=== PATIENT | male | born 1930 | race Caucasian/White ===

== ENCOUNTER → 2017-07-01 | Outpatient (CLI) | payer MEDICARE, OTHER ==
[~2017-07-01] MED LIST: ASPIR LOW81 MG PO; B-121000 MCG PO; BISOPROLOL FUMAR5 MG PO; COUMADIN5 M2 PO; DULCOLAX5 MG PO; FLOMAX0.4 MG PO; FOLIC ACID1 MG PO; FOSAMAX70 MG PO; K-LOR20 MEQ PO; LASIX40 MG PO; METHOTREXATE2.5 MG PO; MIRALAX POWDER255 G1 PO; MULTIVITAMIN1 CTB PO; NAPROXEN500 M1 PO; NATURE'S BLEND F1 MG PO; PERCOCET 325 MG1 TA2 PO; PERCOCET 325 MG1 TA3 PO; POTASSIUM20 MEQ PO; VITAMIN D2000 IU PO; ZOFRAN ODT4 MG SL; [UNRECOGNIZED DRUG - OTHER] PO
[2017-07-01 15:34] LABS: INTERNATIONAL NORM RATIO 2.1 (2.0-3.5)
== END | disposition home or self-care (01) ==
LOC: LAB 13:15
PROVIDERS: Internal Medicine Critical Care Medicine
DX: Z79.01 Long term (current) use of anticoagulants (principal)

== ENCOUNTER 2017-07-07 20:17 | Inpatient (IN) | payer MEDICARE, OTHER ==
[2017-07-07] VITALS (7 sets, daily range): BP systolic 112–136; BP diastolic 60–76
[~2017-07-07] VITALS: Ht 177.8 cm; Wt 97.1 kg
[2017-07-07 21:26] LABS: BASO % 0.2 % (0.0-1.0); EOS % 0.1 % (1.0-4.0); HEMATOCRIT 47.8 % (42.0-52.0); HEMOGLOBIN 16.7 g/dl (14.0-18.0); LYMPH # 0.9 10*3/uL (1.3-4.4); LYMPH % 4.6 % (27.0-41.0); MEAN CELL VOLUME 96.2 fl (80.0-94.0); MEAN CORPUSCULAR HGB 33.6 pg (27.0-31.0); MEAN CORPUSCULAR HGB CONC 34.9 g/dl (33.0-37.0); MEAN PLATELET VOLUME 9.3 fl (9.6-12.3); MONO % 5.1 % (3.0-9.0); NEUT % 89.4 % (47.0-73.0); PLATELET COUNT AUTOMATED 220 10*3/uL (130-400); RED BLOOD COUNT 4.97 10*6/uL (4.50-5.90); RED CELL DISTRI WIDTH 13.2 % (0-14.5); WHITE BLOOD COUNT 19.1 10*3/uL (4.8-10.8)
[2017-07-07 21:37] LABS: ACT PARTIAL THROMBO TIME 35.5 SECONDS (20.8-31.5); INTERNATIONAL NORM RATIO 2.9 (2.0-3.5)
[2017-07-07 21:41] LABS: ALBUMIN 3.2 gm/dl (3.1-4.5); ALKALINE PHOSPHATASE 66 U/L (45-117); BUN 10 mg/dl (7-24); CHLORIDE 102 mmol/L (98-107); CREATININE 1.09 mg/dL (0.70-1.30); LIPASE 77 U/L (73-393); MAGNESIUM 2.1 mg/dL (1.5-2.1); POTASSIUM 3.8 mmol/L (3.5-5.1); SGOT/AST 18 IU/L (3-35); SGPT/ALT 28 U/L (12-78); SODIUM 135 mmol/L (136-145)
[2017-07-07 21:44] LABS: BILIRUBIN 1+ (NEGATIVE); BLOOD 2+ (NEGATIVE); CLARITY CLOUDY (CLEAR); COLOR YELLOW (YELLOW); GLUCOSE NEGATIVE (NEGATIVE); KETONE NEGATIVE (NEGATIVE); LEUKO ESTERASE 1+ (NEGATIVE); NITRITE NEGATIVE (NEGATIVE); PH 7.5 (5.0-9.0)
[2017-07-07 21:55] LABS: BACTERIA 3+; RBC 31-40 rbc/hpf (0-2); WBC 21-30 wbc/hpf (0-5)
[2017-07-08] VITALS (7 sets, daily range): BP systolic 100–127; BP diastolic 62–71
[2017-07-08] MEDS ORDERED: AMIODARONE HCL200 MG PO (02:05)
[2017-07-08] MEDS ORDERED: FLOVENT DISKU100 MCG INH (02:06)
[2017-07-08] MEDS ORDERED: FLOVENT HFA12 GM INH (02:07)
[2017-07-08 06:11] LABS: BASO % 0.1 % (0.0-1.0); EOS % 0.1 % (1.0-4.0); HEMATOCRIT 45.2 % (42.0-52.0); HEMOGLOBIN 15.6 g/dl (14.0-18.0); LYMPH # 1.2 10*3/uL (1.3-4.4); LYMPH % 6.6 % (27.0-41.0); MEAN CELL VOLUME 98.3 fl (80.0-94.0); MEAN CORPUSCULAR HGB 33.9 pg (27.0-31.0); MEAN CORPUSCULAR HGB CONC 34.5 g/dl (33.0-37.0); MEAN PLATELET VOLUME 9.4 fl (9.6-12.3); MONO % 5.5 % (3.0-9.0); NEUT # 15.9 10*3/uL (2.3-7.9); NEUT % 87.1 % (47.0-73.0); PLATELET COUNT AUTOMATED 186 10*3/uL (130-400); RED CELL DISTRI WIDTH 13.3 % (0-14.5); WHITE BLOOD COUNT 18.3 10*3/uL (4.8-10.8)
[2017-07-08 06:43] LABS: ALBUMIN 2.8 gm/dl (3.1-4.5); ALKALINE PHOSPHATASE 56 U/L (45-117); BUN 9 mg/dl (7-24); CHLORIDE 106 mmol/L (98-107); CHOLESTEROL 163 mg/dL (<200); CREATININE 1.06 mg/dL (0.70-1.30); FREE T4 1.56 ng/dl (0.76-1.46); HDL CHOLESTEROL 55 mg/dl (40-60); LDL CHOLESTEROL 92 mg/dL (9-159); PHOSPHOROUS 2.2 mg/dL (2.5-4.9); POTASSIUM 3.9 mmol/L (3.5-5.1); SGOT/AST 19 IU/L (3-35); SGPT/ALT 22 U/L (12-78); SODIUM 139 mmol/L (136-145); TRIGLYCERIDES 82 mg/dl (<150); VLDL CHOLESTEROL 16 mg/dL (6-40)
[2017-07-08 06:48] LABS: THYROID STIM HORMONE (HS) 0.483 uIU/ml (0.358-4.75)
[2017-07-08 06:56] LABS: INTERNATIONAL NORM RATIO 2.6 (2.0-3.5)
[2017-07-08 07:15] LABS: VITAMIN D, 25-HYDROXY 29.8 ng/mL (30-100)
[2017-07-09] VITALS: BP 120/68
[2017-07-09 05:31] LABS: BUN 9 mg/dl (7-24); CHLORIDE 108 mmol/L (98-107); CREATININE 0.94 mg/dL (0.70-1.30); POTASSIUM 3.4 mmol/L (3.5-5.1); SODIUM 139 mmol/L (136-145)
[2017-07-09 06:02] LABS: BASO % 0.2 % (0.0-1.0); EOS # 0.1 10*3/uL (0.0-0.4); EOS % 0.5 % (1.0-4.0); HEMATOCRIT 40.4 % (42.0-52.0); HEMOGLOBIN 14.1 g/dl (14.0-18.0); LYMPH # 1.1 10*3/uL (1.3-4.4); LYMPH % 8.2 % (27.0-41.0); MEAN CELL VOLUME 98.1 fl (80.0-94.0); MEAN CORPUSCULAR HGB 34.2 pg (27.0-31.0); MEAN CORPUSCULAR HGB CONC 34.9 g/dl (33.0-37.0); MEAN PLATELET VOLUME 10.2 fl (9.6-12.3); MONO # 0.8 10*3/uL (0.1-1.0); MONO % 6.1 % (3.0-9.0); NEUT # 11.3 10*3/uL (2.3-7.9); NEUT % 84.3 % (47.0-73.0); PLATELET COUNT AUTOMATED 159 10*3/uL (130-400); RED BLOOD COUNT 4.12 10*6/uL (4.50-5.90); RED CELL DISTRI WIDTH 13.1 % (0-14.5); WHITE BLOOD COUNT 13.4 10*3/uL (4.8-10.8)
[2017-07-09 08:00] VITALS: BP 126/73
[2017-07-09 12:00] VITALS: BP 101/66
[2017-07-09 16:00] VITALS: BP 121/63
[2017-07-09 20:00] VITALS: BP 113/60
[2017-07-10] VITALS: BP 129/71
[2017-07-10 05:55] LABS: ALBUMIN 2.1 gm/dl (3.1-4.5); ALKALINE PHOSPHATASE 47 U/L (45-117); BUN 9 mg/dl (7-24); CHLORIDE 107 mmol/L (98-107); CREATININE 0.91 mg/dL (0.70-1.30); IRON 26 ug/dL (65-175); MAGNESIUM 1.8 mg/dL (1.5-2.1); PHOSPHOROUS 1.2 mg/dL (2.5-4.9); POTASSIUM 3.4 mmol/L (3.5-5.1); SGOT/AST 21 IU/L (3-35); SGPT/ALT 20 U/L (12-78); SODIUM 137 mmol/L (136-145); TOTAL IRON BINDING CAPACITY 170 ug/dl (250-450); TOTAL PROTEIN 5.1 gm/dL (6.4-8.2)
[2017-07-10 06:08] LABS: BASO % 0.6 % (0.0-1.0); EOS # 0.1 10*3/uL (0.0-0.4); EOS % 1.2 % (1.0-4.0); HEMATOCRIT 38.8 % (42.0-52.0); HEMOGLOBIN 13.8 g/dl (14.0-18.0); LYMPH # 0.7 10*3/uL (1.3-4.4); LYMPH % 10.7 % (27.0-41.0); MEAN CELL VOLUME 98.7 fl (80.0-94.0); MEAN CORPUSCULAR HGB 35.1 pg (27.0-31.0); MEAN CORPUSCULAR HGB CONC 35.6 g/dl (33.0-37.0); MONO # 0.4 10*3/uL (0.1-1.0); MONO % 5.1 % (3.0-9.0); NEUT # 5.5 10*3/uL (2.3-7.9); NEUT % 80.9 % (47.0-73.0); PLATELET COUNT AUTOMATED 159 10*3/uL (130-400); RED BLOOD COUNT 3.93 10*6/uL (4.50-5.90); RED CELL DISTRI WIDTH 13.2 % (0-14.5); WHITE BLOOD COUNT 6.8 10*3/uL (4.8-10.8)
[2017-07-10 06:18] LABS: FERRITIN 393.9 ng/mL (22.0-322.0)
[2017-07-10 08:00] VITALS: BP 113/62
[2017-07-10 10:26] LABS: INTERNATIONAL NORM RATIO 2.1 (2.0-3.5)
[2017-07-10 12:00] VITALS: BP 118/72
[2017-07-10 16:00] VITALS: BP 128/76
[2017-07-10 20:00] VITALS: BP 143/74
[2017-07-11] VITALS: BP 135/79
[2017-07-11 04:00] VITALS: BP 110/62
[2017-07-11 06:00] VITALS: BP 114/66
[2017-07-11 06:56] LABS: INTERNATIONAL NORM RATIO 2.5 (2.0-3.5)
[2017-07-11 08:00] VITALS: BP 124/85
[2017-07-11] MEDS ORDERED: FEROSUL325 MG PO (09:24)
[2017-07-11] MEDS ORDERED: KLOR-CON M2020 ME1 PO (09:24)
[2017-07-11] MEDS ORDERED: CIPRO500 MG PO (09:24)
[2017-07-11] MEDS ORDERED: ARNUITY ELLIP200 MCG INH (09:28)
[2017-07-11 12:00] VITALS: BP 107/66
== END 2017-07-11 13:00 | disposition other institution (70) | DRG 872 ==
LOC: ED 20:17 → EDHOLD 07-08 01:01 → 4E 07-08 01:01
PROVIDERS: Emergency Medicine Emergency Medical Services; Family Medicine Adult Medicine; Hospitalist; Internal Medicine; Registered Nurse; ADMIT Internal Medicine
DX: A41.9 Sepsis, unspecified organism (principal); E44.0 Moderate protein-calorie malnutrition; I48.0 Paroxysmal atrial fibrillation; E83.51 Hypocalcemia; N39.0 Urinary tract infection, site not specified; L40.50 Arthropathic psoriasis, unspecified; E53.8 Deficiency of other specified B group vitamins; E87.6 Hypokalemia; Y99.8 Other external cause status; Z51.5 Encounter for palliative care; Z66 Do not resuscitate; E66.9 Obesity, unspecified; K52.9 Noninfective gastroenteritis and colitis, unspecified; K21.9 Gastro-esophageal reflux disease without esophagitis; N40.1 Benign prostatic hyperplasia with lower urinary tract symptoms; K80.20 Calculus of gallbladder without cholecystitis without obstruction; K40.90 Unilateral inguinal hernia, without obstruction or gangrene, not specified as recurrent; Z96.653 Presence of artificial knee joint, bilateral; W18.30XA Fall on same level, unspecified, initial encounter; B96.4 Proteus (mirabilis) (morganii) as the cause of diseases classified elsewhere; Z98.41 Cataract extraction status, right eye; Z98.42 Cataract extraction status, left eye; Z87.891 Personal history of nicotine dependence; Z88.6 Allergy status to analgesic agent; Z79.899 Other long term (current) drug therapy; Z79.01 Long term (current) use of anticoagulants; Z68.31 Body mass index [BMI] 31.0-31.9, adult; Y93.89 Activity, other specified; Y92.89 Other specified places as the place of occurrence of the external cause

== ENCOUNTER → 2017-08-03 | Outpatient (CLI) | payer MEDICARE, OTHER ==
[~2017-08-03] MED LIST changes: +AMIODARONE HCL200 MG PO; +ARNUITY ELLIP200 MCG INH; +CIPRO500 MG PO; +FEROSUL325 MG PO; +FLOVENT DISKU100 MCG INH; +FLOVENT HFA12 GM INH; +KLOR-CON M2020 ME1 PO
[2017-08-03 14:52] LABS: BASO # 0.1 10*3/uL (0.0-0.1); BASO % 0.9 % (0.0-1.0); EOS # 0.3 10*3/uL (0.0-0.4); EOS % 4.4 % (1.0-4.0); HEMATOCRIT 45.5 % (42.0-52.0); HEMOGLOBIN 15.5 g/dl (14.0-18.0); LYMPH # 1.6 10*3/uL (1.3-4.4); LYMPH % 23.8 % (27.0-41.0); MEAN CELL VOLUME 100.4 fl (80.0-94.0); MEAN CORPUSCULAR HGB 34.2 pg (27.0-31.0); MEAN CORPUSCULAR HGB CONC 34.1 g/dl (33.0-37.0); MEAN PLATELET VOLUME 9.4 fl (9.6-12.3); MONO # 0.6 10*3/uL (0.1-1.0); MONO % 8.8 % (3.0-9.0); NEUT # 4.2 10*3/uL (2.3-7.9); NEUT % 61.1 % (47.0-73.0); PLATELET COUNT AUTOMATED 219 10*3/uL (130-400); RED BLOOD COUNT 4.53 10*6/uL (4.50-5.90); RED CELL DISTRI WIDTH 13.2 % (0-14.5); WHITE BLOOD COUNT 6.8 10*3/uL (4.8-10.8)
[2017-08-03 15:06] LABS: ALBUMIN 3.1 gm/dl (3.1-4.5); ALKALINE PHOSPHATASE 63 U/L (45-117); BUN 11 mg/dl (7-24); CHLORIDE 106 mmol/L (98-107); CREATININE 1.03 mg/dL (0.70-1.30); POTASSIUM 4.1 mmol/L (3.5-5.1); SGOT/AST 15 IU/L (3-35); SGPT/ALT 20 U/L (12-78); SODIUM 137 mmol/L (136-145); TOTAL PROTEIN 6.4 gm/dL (6.4-8.2)
== END | disposition home or self-care (01) ==
LOC: CT 01:11 → LAB 01:11 → CT 14:00
PROVIDERS: Urology
DX: Z12.5 Encounter for screening for malignant neoplasm of prostate (principal); N39.0 Urinary tract infection, site not specified; K40.90 Unilateral inguinal hernia, without obstruction or gangrene, not specified as recurrent; N40.1 Benign prostatic hyperplasia with lower urinary tract symptoms

== ENCOUNTER 2018-03-13 20:51 | Inpatient (IN) | payer MEDICARE, OTHER ==
[~2018-03-13] VITALS: Ht 177.8 cm; Wt 95.3 kg
[2018-03-13 21:45] VITALS: BP 115/61
[2018-03-13 22:07] LABS: HEMATOCRIT 45.9 % (42.0-52.0); HEMOGLOBIN 16.1 g/dl (14.0-18.0); MEAN CELL VOLUME 97.9 fl (80.0-94.0); MEAN CORPUSCULAR HGB 34.3 pg (27.0-31.0); MEAN CORPUSCULAR HGB CONC 35.1 g/dl (33.0-37.0); MEAN PLATELET VOLUME 9.5 fl (9.6-12.3); PLATELET COUNT AUTOMATED 220 10*3/uL (130-400); RED BLOOD COUNT 4.69 10*6/uL (4.50-5.90); RED CELL DISTRI WIDTH 12.5 % (0-14.5); WHITE BLOOD COUNT 19.2 10*3/uL (4.8-10.8)
[2018-03-13 22:15] VITALS: BP 116/71
[2018-03-13] MEDS ORDERED: WARFARIN SOD5 MG PO (22:18)
[2018-03-13] MEDS ORDERED: BISOPROLOL FM5 MG PO (22:19)
[2018-03-13 22:20] LABS: ACT PARTIAL THROMBO TIME 31.8 SECONDS (20.8-31.5); INTERNATIONAL NORM RATIO 2.7 (2.0-3.5)
[2018-03-13] MEDS ORDERED: FINASTERIDE5 M1 PO (22:20)
[2018-03-13] MEDS ORDERED: FUROSEMIDE40 MG PO (22:20)
[2018-03-13] MEDS ORDERED: PROVENTIL HFA6.7 GM INH (22:21)
[2018-03-13] MEDS ORDERED: FLONASE ALLERG9.9 ML NAS (22:22)
[2018-03-13 22:27] LABS: ALBUMIN 2.8 gm/dl (3.1-4.5); ALKALINE PHOSPHATASE 74 U/L (45-117); BUN 12 mg/dl (7-24); CHLORIDE 101 mmol/L (98-107); CREATININE 1.18 mg/dL (0.70-1.30); LIPASE 67 U/L (73-393); POTASSIUM 3.8 mmol/L (3.5-5.1); SGOT/AST 23 IU/L (3-35); SGPT/ALT 24 U/L (12-78); SODIUM 134 mmol/L (136-145); TOTAL PROTEIN 6.6 gm/dL (6.4-8.2); TROPONIN I < 0.015 ng/ml (<0.045)
[2018-03-13 22:28] LABS: PLATELET SUFFICIENCY NORMAL (NORMAL); TOTAL CELLS COUNTED 100 #CELLS
[2018-03-13 23:30] VITALS: BP 109/61
[2018-03-13 23:48] LABS: BILIRUBIN NEGATIVE (NEGATIVE); BLOOD 1+ (NEGATIVE); CLARITY CLEAR (CLEAR); COLOR YELLOW (YELLOW); GLUCOSE NEGATIVE (NEGATIVE); KETONE 2+ (NEGATIVE); LEUKO ESTERASE NEGATIVE (NEGATIVE); NITRITE NEGATIVE (NEGATIVE); PH 6.5 (5.0-9.0); SPECIFIC GRAVITY 1.015 (1.005-1.030)
[2018-03-14 00:08] LABS: YEAST TRACE
[2018-03-14 00:10] VITALS: BP 126/70
[2018-03-14 06:20] LABS: BASO % 0.2 % (0.0-1.0); HEMATOCRIT 42.9 % (42.0-52.0); HEMOGLOBIN 14.8 g/dl (14.0-18.0); LYMPH # 0.7 10*3/uL (1.3-4.4); LYMPH % 4.1 % (27.0-41.0); MEAN CELL VOLUME 99.5 fl (80.0-94.0); MEAN CORPUSCULAR HGB 34.3 pg (27.0-31.0); MEAN CORPUSCULAR HGB CONC 34.5 g/dl (33.0-37.0); MEAN PLATELET VOLUME 9.7 fl (9.6-12.3); MONO # 0.9 10*3/uL (0.1-1.0); MONO % 5.4 % (3.0-9.0); NEUT # 15.2 10*3/uL (2.3-7.9); NEUT % 89.6 % (47.0-73.0); PLATELET COUNT AUTOMATED 202 10*3/uL (130-400); RED BLOOD COUNT 4.31 10*6/uL (4.50-5.90); RED CELL DISTRI WIDTH 12.6 % (0-14.5)
[2018-03-14 06:38] LABS: ALBUMIN 2.4 gm/dl (3.1-4.5); BUN 11 mg/dl (7-24); CHLORIDE 103 mmol/L (98-107); CHOLESTEROL 146 mg/dL (<200); CREATININE 1.05 mg/dL (0.70-1.30); HDL CHOLESTEROL 30 mg/dl (40-60); LDL CHOLESTEROL 94 mg/dL (9-159); PHOSPHOROUS 2.9 mg/dL (2.5-4.9); SGOT/AST 20 IU/L (3-35); SGPT/ALT 23 U/L (12-78); SODIUM 137 mmol/L (136-145); TOTAL PROTEIN 5.9 gm/dL (6.4-8.2); TRIGLYCERIDES 111 mg/dl (<150); VLDL CHOLESTEROL 22 mg/dL (6-40)
[2018-03-14 06:44] LABS: ALKALINE PHOSPHATASE 62 U/L (45-117)
[2018-03-14 06:53] LABS: ACT PARTIAL THROMBO TIME 33.5 SECONDS (20.8-31.5); INTERNATIONAL NORM RATIO 2.3 (2.0-3.5)
[2018-03-14 07:44] LABS: VITAMIN D, 25-HYDROXY 36.1 ng/mL (30-100)
[2018-03-14 08:00] VITALS: BP 116/68
[2018-03-14] MEDS ORDERED: FLOVENT DISKU100 MCG INH (10:53)
[2018-03-14 12:00] VITALS: BP 100/57; BP 133/62
[2018-03-14 16:00] VITALS: BP 106/62
[2018-03-14 20:00] VITALS: BP 110/67
[2018-03-15 00:50] VITALS: BP 132/58
[2018-03-15 08:00] VITALS: BP 131/83
[2018-03-15 08:02] LABS: BASO % 0.3 % (0.0-1.0); EOS % 0.3 % (1.0-4.0); HEMATOCRIT 44.2 % (42.0-52.0); HEMOGLOBIN 15.1 g/dl (14.0-18.0); LYMPH # 0.7 10*3/uL (1.3-4.4); LYMPH % 8.2 % (27.0-41.0); MEAN CELL VOLUME 99.3 fl (80.0-94.0); MEAN CORPUSCULAR HGB 33.9 pg (27.0-31.0); MEAN CORPUSCULAR HGB CONC 34.2 g/dl (33.0-37.0); MEAN PLATELET VOLUME 9.4 fl (9.6-12.3); MONO # 0.5 10*3/uL (0.1-1.0); MONO % 6.1 % (3.0-9.0); NEUT # 7.2 10*3/uL (2.3-7.9); NEUT % 84.1 % (47.0-73.0); PLATELET COUNT AUTOMATED 230 10*3/uL (130-400); RED BLOOD COUNT 4.45 10*6/uL (4.50-5.90); RED CELL DISTRI WIDTH 12.7 % (0-14.5); WHITE BLOOD COUNT 8.6 10*3/uL (4.8-10.8)
[2018-03-15 08:27] LABS: INTERNATIONAL NORM RATIO 2.1 (2.0-3.5)
[2018-03-15 08:28] LABS: CHLORIDE 108 mmol/L (98-107); POTASSIUM 4.2 mmol/L (3.5-5.1); SODIUM 139 mmol/L (136-145)
[2018-03-15 08:37] LABS: ALBUMIN 2.5 gm/dl (3.1-4.5); ALKALINE PHOSPHATASE 64 U/L (45-117); BUN 8 mg/dl (7-24); CREATININE 1.09 mg/dL (0.70-1.30); PHOSPHOROUS 2.4 mg/dL (2.5-4.9); SGOT/AST 36 IU/L (3-35); SGPT/ALT 26 U/L (12-78)
[2018-03-15 12:00] VITALS: BP 110/54
[2018-03-15 16:00] VITALS: BP 140/81
[2018-03-15 20:00] VITALS: BP 132/72
[2018-03-16] VITALS (9 sets, daily range): BP systolic 109–146; BP diastolic 50–86
[2018-03-16 06:43] LABS: BASO # 0.1 10*3/uL (0.0-0.1); BASO % 0.7 % (0.0-1.0); EOS # 0.3 10*3/uL (0.0-0.4); EOS % 4.1 % (1.0-4.0); HEMATOCRIT 42.8 % (42.0-52.0); HEMOGLOBIN 14.7 g/dl (14.0-18.0); LYMPH % 12.9 % (27.0-41.0); MEAN CELL VOLUME 98.4 fl (80.0-94.0); MEAN CORPUSCULAR HGB 33.8 pg (27.0-31.0); MEAN CORPUSCULAR HGB CONC 34.3 g/dl (33.0-37.0); MEAN PLATELET VOLUME 9.4 fl (9.6-12.3); MONO # 0.8 10*3/uL (0.1-1.0); MONO % 10.2 % (3.0-9.0); NEUT # 5.4 10*3/uL (2.3-7.9); NEUT % 70.8 % (47.0-73.0); PLATELET COUNT AUTOMATED 209 10*3/uL (130-400); RED BLOOD COUNT 4.35 10*6/uL (4.50-5.90); RED CELL DISTRI WIDTH 12.7 % (0-14.5); WHITE BLOOD COUNT 7.6 10*3/uL (4.8-10.8)
[2018-03-16 07:03] LABS: ALBUMIN 2.2 gm/dl (3.1-4.5); BUN 7 mg/dl (7-24); CHLORIDE 110 mmol/L (98-107); POTASSIUM 3.3 mmol/L (3.5-5.1); SODIUM 143 mmol/L (136-145)
[2018-03-16 07:06] LABS: ALKALINE PHOSPHATASE 53 U/L (45-117); SGOT/AST 35 IU/L (3-35); SGPT/ALT 34 U/L (12-78); TOTAL PROTEIN 5.4 gm/dL (6.4-8.2)
[2018-03-16 07:09] LABS: INTERNATIONAL NORM RATIO 1.6 (2.0-3.5)
[2018-03-17] VITALS: BP 136/67
[2018-03-17 06:32] LABS: BASO # 0.1 10*3/uL (0.0-0.1); EOS # 0.3 10*3/uL (0.0-0.4); EOS % 3.7 % (1.0-4.0); HEMATOCRIT 42.4 % (42.0-52.0); HEMOGLOBIN 14.6 g/dl (14.0-18.0); MEAN CELL VOLUME 98.4 fl (80.0-94.0); MEAN CORPUSCULAR HGB 33.9 pg (27.0-31.0); MEAN CORPUSCULAR HGB CONC 34.4 g/dl (33.0-37.0); MEAN PLATELET VOLUME 9.1 fl (9.6-12.3); MONO # 0.5 10*3/uL (0.1-1.0); MONO % 6.9 % (3.0-9.0); NEUT # 5.3 10*3/uL (2.3-7.9); PLATELET COUNT AUTOMATED 198 10*3/uL (130-400); RED BLOOD COUNT 4.31 10*6/uL (4.50-5.90); RED CELL DISTRI WIDTH 12.8 % (0-14.5); WHITE BLOOD COUNT 7.3 10*3/uL (4.8-10.8)
[2018-03-17 06:38] LABS: INTERNATIONAL NORM RATIO 1.5 (2.0-3.5)
[2018-03-17 06:49] LABS: ALBUMIN 2.2 gm/dl (3.1-4.5); BUN 7 mg/dl (7-24); CHLORIDE 111 mmol/L (98-107); POTASSIUM 3.5 mmol/L (3.5-5.1); SODIUM 141 mmol/L (136-145)
[2018-03-17 06:54] LABS: ALKALINE PHOSPHATASE 53 U/L (45-117); CREATININE 0.73 mg/dL (0.70-1.30); PHOSPHOROUS 2.2 mg/dL (2.5-4.9); SGOT/AST 39 IU/L (3-35); SGPT/ALT 38 U/L (12-78); TOTAL PROTEIN 5.3 gm/dL (6.4-8.2)
[2018-03-17 08:00] VITALS: BP 122/66
[2018-03-17 12:00] VITALS: BP 108/71
[2018-03-17 16:00] VITALS: BP 113/71
[2018-03-17 16:10] LABS: ALBUMIN, URINE RANDOM 40.8 % (.); ALPHA-1-GLOBULIN, URINE 6.7 % (.); ALPHA-2-GLOBULIN, URINE 14.8 % (.); M-SPIKE % Not Observed % (Not Observed); PROTEIN,TOTAL - URINE RANDOM 38.8 mg/dL (Not Estab.)
[2018-03-17 20:00] VITALS: BP 119/54
[2018-03-18 00:22] VITALS: BP 131/69
[2018-03-18 06:02] LABS: BASO # 0.1 10*3/uL (0.0-0.1); BASO % 0.8 % (0.0-1.0); EOS # 0.3 10*3/uL (0.0-0.4); EOS % 2.4 % (1.0-4.0); HEMATOCRIT 46.5 % (42.0-52.0); HEMOGLOBIN 16.6 g/dl (14.0-18.0); LYMPH # 0.9 10*3/uL (1.3-4.4); LYMPH % 8.6 % (27.0-41.0); MEAN CELL VOLUME 96.9 fl (80.0-94.0); MEAN CORPUSCULAR HGB 34.6 pg (27.0-31.0); MEAN CORPUSCULAR HGB CONC 35.7 g/dl (33.0-37.0); MEAN PLATELET VOLUME 9.4 fl (9.6-12.3); MONO # 0.7 10*3/uL (0.1-1.0); MONO % 6.4 % (3.0-9.0); NEUT # 8.5 10*3/uL (2.3-7.9); NEUT % 79.9 % (47.0-73.0); RED CELL DISTRI WIDTH 12.6 % (0-14.5); WHITE BLOOD COUNT 10.6 10*3/uL (4.8-10.8)
[2018-03-18 06:27] LABS: ALBUMIN 2.6 gm/dl (3.1-4.5); BUN 6 mg/dl (7-24); CHLORIDE 109 mmol/L (98-107); CREATININE 0.81 mg/dL (0.70-1.30); INTERNATIONAL NORM RATIO 1.5 (2.0-3.5); POTASSIUM 3.3 mmol/L (3.5-5.1); SGOT/AST 35 IU/L (3-35); SGPT/ALT 45 U/L (12-78); SODIUM 141 mmol/L (136-145); TOTAL PROTEIN 6.1 gm/dL (6.4-8.2)
[2018-03-18 06:28] LABS: ALKALINE PHOSPHATASE 67 U/L (45-117)
[2018-03-18 07:01] LABS: PLATELET COUNT AUTOMATED 283 10*3/uL (130-400)
[2018-03-18 08:00] VITALS: BP 122/86
[2018-03-18 12:00] VITALS: BP 106/60
[2018-03-18] MEDS ORDERED: DOK COLACE100 MG PO (12:53)
[2018-03-18] MEDS ORDERED: METRONIDAZOLE500 M1 PO (12:53)
[2018-03-18] MEDS ORDERED: AUGMENTIN 875875 MG PO (12:53)
[2018-03-18] MEDS ORDERED: HYDROCODONE-AC1 EAC1 PO (12:53)
[2018-03-21 15:05] LABS: ALBUMIN, URINE RANDOM 36.6 % (.); ALPHA-1-GLOBULIN, URINE 7.1 % (.); ALPHA-2-GLOBULIN, URINE 15.9 % (.); GAMMA GLOBULIN, URINE 15.3 % (.); M-SPIKE % Not Observed % (Not Observed); PROTEIN,TOTAL - URINE RANDOM 14.3 mg/dL (Not Estab.)
[2018-03-22 17:06] LABS: ALBUMIN 2.5 g/dL (2.9-4.4); ALPHA-1-GLOBULIN 0.3 g/dL (0.0-0.4); ALPHA-2-GLOBULIN 0.8 g/dL (0.4-1.0); BETA GLOBULIN 0.7 g/dL (0.7-1.3); GAMMA GLOBULIN 0.7 g/dL (0.4-1.8); GLOBULIN, TOTAL 2.6 g/dL (2.2-3.9); M-SPIKE 0.1 g/dL (Not Observed); TOTAL PROTEIN, SERUM 5.1 g/dL (6.0-8.5)
== END 2018-03-18 14:49 | disposition other institution (70) | DRG 853 ==
LOC: ED 20:51 → EDHOLD 23:13 → 4E 23:13
PROVIDERS: Emergency Medicine; Family Medicine; Internal Medicine; Internal Medicine Hematology & Oncology; Physician Assistant
PROC: 0D9P0ZZ Drainage of Rectum, Open Approach (ICD-10-PCS; principal; 2018-03-16)
DX: A41.9 Sepsis, unspecified organism (principal); J18.9 Pneumonia, unspecified organism; E43 Unspecified severe protein-calorie malnutrition; G93.41 Metabolic encephalopathy; E87.2 Acidosis; I48.0 Paroxysmal atrial fibrillation; D68.9 Coagulation defect, unspecified; I50.30 Unspecified diastolic (congestive) heart failure; E87.1 Hypo-osmolality and hyponatremia; K61.1 Rectal abscess; E86.0 Dehydration; B37.9 Candidiasis, unspecified; R31.29 Other microscopic hematuria; R65.20 Severe sepsis without septic shock; R32 Unspecified urinary incontinence; K52.9 Noninfective gastroenteritis and colitis, unspecified; R15.9 Full incontinence of feces; R94.31 Abnormal electrocardiogram [ECG] [EKG]; R74.0 Nonspecific elevation of levels of transaminase and lactic acid dehydrogenase [LDH]; R80.9 Proteinuria, unspecified; R82.4 Acetonuria; K21.9 Gastro-esophageal reflux disease without esophagitis; L40.50 Arthropathic psoriasis, unspecified; N40.0 Benign prostatic hyperplasia without lower urinary tract symptoms; E53.8 Deficiency of other specified B group vitamins; E55.9 Vitamin D deficiency, unspecified; K64.9 Unspecified hemorrhoids; I35.8 Other nonrheumatic aortic valve disorders; R73.9 Hyperglycemia, unspecified; E66.9 Obesity, unspecified; E87.6 Hypokalemia; W18.39XA Other fall on same level, initial encounter; E78.5 Hyperlipidemia, unspecified; Z66 Do not resuscitate; Z51.5 Encounter for palliative care; Y93.89 Activity, other specified; Y92.89 Other specified places as the place of occurrence of the external cause; Y99.8 Other external cause status; Z79.01 Long term (current) use of anticoagulants; Z87.440 Personal history of urinary (tract) infections; Z88.8 Allergy status to other drugs, medicaments and biological substances; Z88.6 Allergy status to analgesic agent; Z79.899 Other long term (current) drug therapy; Z98.42 Cataract extraction status, left eye; Z98.41 Cataract extraction status, right eye; Z87.891 Personal history of nicotine dependence; Z86.711 Personal history of pulmonary embolism; Z68.30 Body mass index [BMI] 30.0-30.9, adult